=== PATIENT | female | born 1990 | race African-American/Black ===

== ENCOUNTER 2025-07-11 23:27 | Inpatient (IN) | payer BC ==
[~2025-07-11] VITALS: Ht 154.9 cm; Wt 68.0 kg
[2025-07-11 23:29] VITALS: O2SAT 96
[2025-07-11] MEDS: ONDANSETRON HCL 4MG/2ML INJ IV ONE (23:41)
[2025-07-11] MEDS: MORPHINE SULFATE 4 MG/ML INJ (FOR IV/IM USE) IV ONE (23:41)
[2025-07-11] MEDS: SODIUM CHLORIDE 0.9% 1,000 ML IV ONE (23:42)
[2025-07-11] MEDS: NEOMYCIN/BACITRACIN/POLYMYXIN OINT 14GM TOP ONE (23:45)
[2025-07-11] MEDS: TETANUS, DIPHTHERIA, PERTUSSIS VAC/PF 0.5ML (>10YR OLD) IM ONE (23:46)
[2025-07-12] MEDS: CEFAZOLIN 1000MG PREMIX 50 ML IV ONE (00:37)
[2025-07-12] MEDS: MORPHINE SULFATE 10 MG/ML INJ (NOT FOR IM USE) IV ONE (00:42)
[2025-07-12] MEDS ORDERED: CLONIDINE 0.1MG TABLET PO PRN (02:00)
[2025-07-12] MEDS ORDERED: ZOLPIDEM TARTRATE 5MG TABLET PO PRN (02:00)
[2025-07-12] MEDS ORDERED: NALOXONE HCL 0.4MG/ML VIAL IV PRN (02:00)
[2025-07-12] MEDS ORDERED: ACETAMINOPHEN 325MG TABLET PO PRN (02:00)
[2025-07-12] MEDS ORDERED: MAGNESIUM/ALUMINUM HYDROXIDE/SIMETHICONE 30ML UDC PO PRN (02:00)
[2025-07-12] MEDS ORDERED: ONDANSETRON HCL 4MG/2ML INJ IV PRN (02:00)
[2025-07-12] MEDS: CEFTRIAXONE 1GM/50ML 50 ML IV SCH (05:00)
[2025-07-12 06:01] VITALS: BP 129/80; PULSE 113; RESP 20; TEMP 36.696
[2025-07-12 08:00] VITALS: BP 117/85; PULSE 99; RESP 16; TEMP 36.7; O2SAT 99
[2025-07-12] MEDS: PANTOPRAZOLE SODIUM 40 MG/VIAL IV SCH (08:57)
[2025-07-12] MEDS: HYDROCODONE/ACETAMINOPHEN 5/325MG TABLET PO PRN (08:57)
[2025-07-12 12:00] VITALS: BP 112/66; PULSE 16; RESP 16; TEMP 36.7; O2SAT 99
[2025-07-12 12:21] LABS: BASOPHILS % 0.5 % (0.0-2.0); EOSINOPHILS % 0.5 % (0.0-5.0); HEMATOCRIT. 33.2 % (36.0-48.0); HEMOGLOBIN. 11.2 g/dL (12.0-16.0); LYMPHOCYTES % 24.2 % (20.0-50.0); MEAN PLATELET VOLUME 9.8 fl (7.4-10.4); MONOCYTES % 6.4 % (2.0-8.0); NEUTROPHILS % 68.4 % (40.0-76.0); PLATELET 236 x1000/uL (130-400); RED BLOOD CELL COUNT 3.81 mill/uL (4.2-5.4); RED CELL DISTRIBUTION WIDTH 13.9 % (11.6-14.6)
[2025-07-12] MEDS: MORPHINE SULFATE 2 MG/ML INJ (NOT FOR IM USE) IV PRN (12:37)
[2025-07-12 13:28] LABS: CREATININE 0.9 mg/dL (0.6-1.0)
[2025-07-12] MEDS: ENOXAPARIN 40MG/0.4ML SYR SUBCUT SCH (14:13)
[2025-07-12 16:00] VITALS: BP 119/80; PULSE 86; RESP 16; TEMP 36.7; O2SAT 98
[2025-07-12] MEDS: VANCOMYCIN 1.25GM/250ML IV NR (18:16)
[2025-07-12 19:35] LABS: CLARITY URINE CLEAR (CLEAR); COLOR URINE YELLOW (YELLOW); GLUCOSE URINE NEGATIVE (NEGATIVE); KETONES URINE NEGATIVE (NEGATIVE); LEUKOCYTE ESTERASE URINE NEGATIVE (NEGATIVE); NITRITE URINE NEGATIVE (NEGATIVE); OCCULT BLOOD URINE 2+ (NEGATIVE); PH URINE 6.5 (4.5-8.0); PROTEIN URINE NEGATIVE (NEGATIVE); SPECIFIC GRAVITY URINE 1.017 (1.005-1.030); UROBILINOGEN URINE 0.2 E.U./dL (0.2-1.0)
[2025-07-12 19:46] LABS: *AMPHETAMINES SCREEN URINE NEGATIVE (NEGATIVE); *BARBITURATES SCREEN URINE NEGATIVE (NEGATIVE); *BENZODIAZEPINES SCREEN URINE NEGATIVE (NEGATIVE); *COCAINE SCREEN URINE NEGATIVE (NEGATIVE); BACTERIA URINE 1+; METHADONE URINE SCREEN NEGATIVE (NEGATIVE); SQUAMOUS EPITHELIAL CELL URINE 2+ /lpf (RARE/1+); WBC URINE 0-2 /hpf (0-2)
[2025-07-12 19:47] LABS: CANNABINOID URINE SCREEN NEGATIVE (NEGATIVE); ECSTASY MDMA SCREEN URINE NEGATIVE (NEGATIVE); OPIATES URINE SCREEN PRESUMPTIVE POSITIVE (NEGATIVE); PHENCYCLIDINE URINE SCREEN NEGATIVE (NEGATIVE)
[2025-07-12 20:00] VITALS: BP 125/70; PULSE 99; RESP 20; TEMP 36.6; O2SAT 100
[2025-07-12] MEDS: DIPHENHYDRAMINE 50MG/ML VIAL IV PRN (22:15)
[2025-07-13] VITALS: BP 118/80; PULSE 84; RESP 16; TEMP 36.4; O2SAT 98
[2025-07-13] MEDS: CEFTRIAXONE 1GM/50ML 50 ML IV SCH (03:04)
[2025-07-13 04:00] VITALS: BP 119/74; PULSE 94; RESP 17; TEMP 36.5
[2025-07-13] MEDS: VANCOMYCIN 750MG PREMIX 150 ML IV SCH ×2 (06:16→21:11)
[2025-07-13 06:57] LABS: BASOPHILS % 0.5 % (0.0-2.0); EOSINOPHILS % 1.5 % (0.0-5.0); HEMATOCRIT. 32.8 % (36.0-48.0); HEMOGLOBIN. 11.0 g/dL (12.0-16.0); LYMPHOCYTES % 26.5 % (20.0-50.0); MEAN PLATELET VOLUME 9.6 fl (7.4-10.4); MONOCYTES % 6.0 % (2.0-8.0); NEUTROPHILS % 65.5 % (40.0-76.0); PLATELET 230 x1000/uL (130-400); RED BLOOD CELL COUNT 3.80 mill/uL (4.2-5.4); RED CELL DISTRIBUTION WIDTH 13.9 % (11.6-14.6)
[2025-07-13 07:17] LABS: CREATININE 0.9 mg/dL (0.6-1.0); UREA NITROGEN BLOOD 11 mg/dL (9-23)
[2025-07-13 08:00] VITALS: BP_SYST 106; BP_SYST 111; BP_DIAS 59; BP_DIAS 77; PULSE 92; PULSE 94; RESP 16; RESP 17; TEMP 36.3; TEMP 36.4; O2SAT 96; O2SAT 97
[2025-07-13] MEDS ORDERED: CEPH500C2 MT (10:40)
[2025-07-13] MEDS ORDERED: HYDR-4001 MT (10:40)
[2025-07-13 16:00] VITALS: BP 137/81; PULSE 94; RESP 16; TEMP 36; O2SAT 96
[2025-07-13 20:00] VITALS: BP 133/91; PULSE 100; RESP 18; TEMP 36.6; O2SAT 95
[2025-07-14] VITALS: BP 121/68; PULSE 97; RESP 18; TEMP 36.6; O2SAT 97
[2025-07-14 04:00] VITALS: BP 118/71; PULSE 87; RESP 18; TEMP 36.2; O2SAT 100
[2025-07-14] MEDS: FAMOTIDINE 20MG/2ML VIAL IV SCH (09:39)
[2025-07-14 09:48] LABS: BASOPHILS % 0.7 % (0.0-2.0); EOSINOPHILS % 1.3 % (0.0-5.0); HEMATOCRIT. 32.4 % (36.0-48.0); HEMOGLOBIN. 11.0 g/dL (12.0-16.0); LYMPHOCYTES % 27.2 % (20.0-50.0); MEAN PLATELET VOLUME 9.6 fl (7.4-10.4); MONOCYTES % 5.6 % (2.0-8.0); NEUTROPHILS % 65.2 % (40.0-76.0); PLATELET 209 x1000/uL (130-400); RED BLOOD CELL COUNT 3.70 mill/uL (4.2-5.4); RED CELL DISTRIBUTION WIDTH 14.1 % (11.6-14.6)
[2025-07-14 10:04] LABS: CREATININE 0.9 mg/dL (0.6-1.0); UREA NITROGEN BLOOD 12 mg/dL (9-23)
[2025-07-14] MEDS ORDERED: HYDR-4009 MT (10:46)
[2025-07-14 12:00] VITALS: BP 133/76; PULSE 88; RESP 20; TEMP 36.6; O2SAT 100
[2025-07-14 16:00] VITALS: BP 134/79; PULSE 106; RESP 20; TEMP 37.4; O2SAT 98
[2025-07-14 16:57] VITALS: BP 133/76; PULSE 88; RESP 20; TEMP 97.9
[2025-07-14 18:06] VITALS: BP 130/76; PULSE 85; RESP 18
== END 2025-07-14 19:40 | disposition home health service (06) | DRG 605 ==
LOC: EDBD 23:27 → ER 23:27 → 7EST 07-12 01:47 → EDBEDREQ 07-12 01:50 → EDBEDREQTM 07-12 01:50
PROVIDERS: ADMIT Internal Medicine; ATTEND Internal Medicine
DX: S91.332A Puncture wound without foreign body, left foot, initial encounter (principal); N39.0 Urinary tract infection, site not specified; W34.00XA Accidental discharge from unspecified firearms or gun, initial encounter; J45.909 Unspecified asthma, uncomplicated; D64.9 Anemia, unspecified; Y93.89 Activity, other specified; Y92.89 Other specified places as the place of occurrence of the external cause; Y99.8 Other external cause status
CPT/HCPCS: 36415; 73630; 80048; 80202; 80305; 81003; 82565; 84145; 84443; 85025; 90715; 93970; 97162; 99291; J0690; J0696; J1200; J1308; J1650; J2270; J2405; J2470; J3373; J7030